=== PATIENT | male | born 1990 | race Caucasian/White ===

== ENCOUNTER 2018-07-14 22:43 | Emergency (ER) | payer MEDICAID ==
[~2018-07-14] VITALS: Ht 172.7 cm; Wt 79.1 kg
[2018-07-14 22:58] VITALS: Ht 172.7 cm; Wt 79.1 kg
[2018-07-15 01:51] VITALS: BP 122/79
== END 2018-07-15 01:52 | disposition home or self-care (01) ==
LOC: D.ER 22:43
DX: T65.892A Toxic effect of other specified substances, intentional self-harm, initial encounter (principal); Y92.89 Other specified places as the place of occurrence of the external cause; S09.8XXA Other specified injuries of head, initial encounter; Y08.89XA Assault by other specified means, initial encounter; Y93.89 Activity, other specified; H16.8 Other keratitis

== ENCOUNTER 2019-11-26 00:38 | Emergency (ER) | payer MEDICAID ==
[~2019-11-26] VITALS: Ht 172.7 cm; Wt 77.3 kg
[2019-11-26 00:42] VITALS: Ht 172.7 cm; Wt 77.3 kg
[2019-11-26] MEDS ORDERED: BUSPAR5 MG PO (00:44)
[2019-11-26] MEDS ORDERED: DEPRESSION MED (00:44)
[2019-11-26] MEDS ORDERED: BENADRYL25 MG PO (01:00)
[2019-11-26 01:49] VITALS: BP 123/85
== END 2019-11-26 01:47 | disposition home or self-care (01) ==
LOC: D.ER 00:38
DX: T63.481A Toxic effect of venom of other arthropod, accidental (unintentional), initial encounter (principal); J45.909 Unspecified asthma, uncomplicated; Z72.0 Tobacco use